=== PATIENT | male | born 1960 | race Caucasian/White ===

== ENCOUNTER 2018-04-30 01:22 | Observation (INO) ==
[2018-04-30] MEDS ORDERED: Aspirin 81 MG TAB.CHEW PO ONE (01:36)
--- NOTE | 2018-04-30 01:55 | Emergency Department Note ---
Disposition Clinical Impression: Syncopal episodes Qualifiers: Syncope type: unspecified Qualified Code(s): R55 - Syncope and collapse Disposition: Admitted As Inpatient Condition: Good General Adult HPI - General Chief complaint: ED General Medical Stated complaint: Neck pain Time Seen by Provider: 04/30/18 01:36 Source: patient, family, EMS Mode of arrival: private vehicle Limitations: no limitations Nursing Notes Reviewed: Yes Vital Signs Reviewed: Yes - History of Present Illness HPI Narrative: 57-year-old male with a history of alcoholism, insulin-dependent diabetes, hypertension presents emergency department for evaluation of left neck and jaw pain, patient states "I had a heart attack 8 years ago and this is exactly what it felt like". Patient states he was sitting in the recliner and all of a sudden he got a sharp horrible pain to his left neck just under his left ear that radiated down his shoulder and his left upper arm about mid bicep. Patient states pain come on suddenly, it has not gotten better, has not gotten worse. Patient does state that he has had a cough for the last 2 weeks, it is nonproductive. He does state that he had congestion for the last 2 weeks. Patient states he also had a recent fall, a CT of the front of his head on an air conditioner and he has pain to his forehead area. Patient denies fever, chills, shortness of breath, dyspnea, abdominal pain, nausea, vomiting, diarrhea, genitourinary changes. White count bedside, states patient had approximately 12 beers tonight, that this is his normal daily alcohol intake. She states that she was having periods where he would be very confused these would last for a few minutes and the new come back around, during these times he would have garbled speech, be unable to follow commands, almost pass out. Pain Scale: 6 - Related Data Home Medications Medication Instructions Recorded Confirmed Insulin LISPRO [Humalog Kwikpen 0 unit SQ [facility] 05/01/16 03/22/18 U-100] Simvastatin [Zocor] 20 mg PO HS 05/01/16 04/30/18 Losartan [Cozaar] 50 mg PO BID 04/30/18 04/30/18 SUMAtriptan succinate [Imitrex] 6 mg SQ ONCE PRN 04/30/18 04/30/18 Previous Rx's Medication Instructions Recorded Ibuprofen [Motrin] 600 mg PO Q6HR PRN #20 tab 07/27/16 Gabapentin [Neurontin] 600 mg PO QID #12 tablet 03/10/17 Allergies Allergy/AdvReac Type Severity Reaction Status Date / Time shellfish derived Allergy Rash Verified 04/16/18 13:57 All systems ED: reviewed and negative except as stated. Review of Systems: As Per HPI Past Medical History - Past Medical History Attestation: Yes The following information was validated with the patient. Source: patient Medical history: Reports: diabetes, hypertension, migraine, myocardial infarction, other Surgical history: Reports: no surgical history, other ([facility]) Psychiatric history: Reports: depression - Social History Smoking Status: Never smoker Smokeless Tobacco Status: No Alcohol use: Reports: heavy, recent Drug use: Reports: none Physical Exam - General Limitations: no limitations General appearance: alert, in no apparent distress - Head Head exam: atraumatic, normocephalic, normal inspection, other (small abrasion to frontal area without signs of infection) - Eye Eye exam: Present: normal appearance, PERRL, EOMI - ENT ENT exam: normal exam, normal oropharynx, mucous membranes moist, TM's normal bilaterally - Neck Neck exam: Present: normal inspection, full ROM, trachea midline, tenderness ( with palpation left side, local) - Chest Chest inspection: Present: normal inspection, symmetric chest wall rise - Respiratory Respiratory exam: Present: normal lung sounds bilaterally, other (episodes of dry cough) - Cardiovascular Cardiovascular exam: Present: regular rate, normal rhythm, normal heart sounds - Abdominal Exam Abdominal exam: Present: soft, Non-Tender, normal bowel sounds. Absent: tenderness, distention, guarding, rebound, rigidity - Extremities Exam Extremities exam: Present: normal inspection, full ROM. Absent: tenderness, pedal edema - Back Exam Back exam: Present: normal inspection, full ROM. Absent: tenderness - Neurological Exam Neurological exam: Present: alert, oriented X3 - Expanded Neurological Exam Patient oriented to: Present: person, place, time Speech: Present: fluid speech Cranial nerves: EOM function (II, III, IV, ): Normal, facial sensation (V): Normal, facial palsy (VII): Normal, gag reflex (IX): Normal, spinal accessory function (XI): Normal, tongue deviation (XII): Normal Cerebellar function: finger to nose: Normal, heel to callahan: Normal Motor strength - LUE: 5/5 Motor strength - RUE: 5/5 Motor strength - LLE: 5/5 Motor strength - RLE: 5/5 Upper motor neuron exam: surinder neglect: Absent bilaterally, pronator drift: Absent bilaterally Sensory exam upper extremity: temperature: Normal, 2 point discrimination: Normal Sensory exam lower extremity: temperature: Normal, 2 point discrimination: Normal Coma Scale Eye Opening: Spontaneous Coma Scale Motor Response: Obeys Commands Coma Scale Verbal Response: Oriented Coma Scale Total: 15 - Psychiatric Psychiatric exam: Present: normal affect, normal mood - Skin Skin exam: Present: warm, dry, intact, normal color Course Course Narrative: 57-year-old male in moderate amount of distress, he appears very anxious. Patient neurologically intact, GCS 15, vital signs stable. Physical exam reveals localized tenderness to the left neck, palpation of the neck muscles refill radiation of pain down the left arm. Patient is morbidly obese. Slight 1+ pitting edema bilateral lower extremities, patient and state this is chronic. EKG reveals sinus rhythm with a ventricular rate of 80 beats minute, NH interval 750 ms, QTC [address] depression or elevation, compared to old EKG no changes. Blood pressure 170s systolic, SPO2 mildly hypoxic at 90%, afebrile, non-tachycardic. We will complete cardiac labs, chest x-ray, apply oxygen and reevaluate. - Reevaluation(s) Reevaluation #1: Shortly after arrival patient blood pressure dropping to 85, 82 systolically, immediately started bolus. Patient states his blood pressure meds were recently adjusted and increased, a new one was also added that he takes at night. During conversation patient states that he has double vision as a result of a recent eye surgery to his left eye. During conversation patient is joking, laughing. He remains neurologically intact. Immediately after I left the room, I was called back into the room by the nurse who had not left and stated patient had a change in mental status, went into the room and noticed patient to be basically unresponsive, heart rate remained in the 80s, no change in blood pressure, breathing on his own though he was not responding. After about 90 seconds, patient started moving on his own and when he was speaking speech was very garbled, after about another minute of this patient returned to baseline with no recollection of what had happened. We added a head CT for evaluation. Dr. Saenz's head while on face time with patient is agreeable to plan of care at this time. Time: 03:48 Reevaluation #2: Patient resting quietly, no acute distress. Patient has remained vitally stable , resting quietly. Chest x-ray returns without acute process, CT of the head and C-spine returned negative. EtOH 143, glucose 343, lactic acid 2.7. Otherwise CBC is benign, BMP is negative, hepatic panel negative, troponin negative, UA negative, VBG negative. Review of records shows normal SPO2 90-92 % on room air, on room air patient was 90%, this is his baseline. Patient with a witnessed syncopal event, plan at this time is admission to the hospital for syncope workup. Discussed with patient and family who are agreeable to plan of care. Time: 04:45 Reevaluation #3: Spoke with hospitalist agreeable for admission to hospital for syncopal episode and further workup. Patient remains agreeable to plan. Time: 05:27 Vital Signs Temperature 98.1 F 04/30/18 01:27 Pulse Rate 79 04/30/18 01:27 Respiratory Rate 19 04/30/18 01:27 Blood Pressure 107/79 04/30/18 01:27 O2 Sat by Pulse Oximetry 92 04/30/18 01:27 Temperature 98.2 F 05/01/18 03:15 Pulse Rate 81 05/01/18 03:15 Respiratory Rate 18 05/01/18 03:15 Blood Pressure 162/95 05/01/18 03:15 O2 Sat by Pulse Oximetry 97 05/01/18 03:15 Oxygen Delivery Oxygen Delivery Room Air Medical Decision Making - Medical Records Medical records reviewed: Yes I reviewed the patient's medical records. - Lab Data Lab results reviewed: Yes I reviewed the patient's lab results. Result diagrams: 04/30/18 03:16 04/30/18 02:24 Lab Results 04/30/18 04/30/18 04/30/18 Range/Units 01:48 02:14 02:24 WBC (4.3-11.1) K/mcL RBC (4.19-5.50) M/mcL Hgb (12.9-16.9) g/dL Hct (37.5-50.1) % MCV (83.0-100.0) fL MCH (28.0-33.3) pg MCHC (31.6-35.5) g/dL RDW (11.5-14.5) % Plt Count (140-400) K/mcL MPV (9.4-12.4) fL Immature Gran % (0-4) % Seg Neutrophils % % Lymphocytes % % Monocytes % % Eosinophils % % Basophils % % Neutrophils # (1.6-8.9) K/mcL Lymphocytes # (0.6-4.6) K/mcL Monocytes # (0.0-1.3) K/mcL Eosinophils # (0.0-0.6) K/mcL Basophils # (0.0-0.2) K/mcL PT 11.6 (9.4-12.1) Seconds INR 1.0 APTT 27.1 (26.0-36.0) Seconds VBG pH (7.32-7.42) pH Units VBG pCO2 (41-51) mmHg VBG pO2 (25-50) mmHg VBG HCO3 (21-27) mEq/L Sodium (136-145) mEq/L Potassium (3.5-5.1) mEq/L Chloride (98-107) mEq/L Carbon Dioxide (23-29) mEq/L BUN (6-20) mg/dL Creatinine (0.70-1.30) mg/dL Est GFR ( Amer) (> 60) Est GFR (Non-Af Amer) (> 60) BUN/Creatinine Ratio (6-26) Glucose (70-105) mg/dL POC Glucose 308 H (70-99) mg/dL Calculated Osmolality (280-300) Lactic Acid (0.5-2.2) mmol/L Calcium (8.6-10.3) mg/dL Total Bilirubin (0.3-1.0) mg/dL Direct Bilirubin (0.0-0.2) mg/dL Indirect Bilirubin (0.0-1.2) mg/dL AST (13-39) Units/L ALT (7-52) Units/L Alkaline Phosphatase (34-104) Units/L Troponin I (< 0.04) ng/mL Serum Total Protein (6.4-8.9) g/dL Albumin (3.5-5.7) g/dL Globulin (2.4-3.5) g/dL Albumin/Globulin Ratio (1.1-2.2) Lipase (11-82) Units/L Urine Color Yellow (Yellow) Urine Clarity Clear (Clear) Urine pH 6.5 (5.0-8.0) pH Units Ur Specific [place] 1.009 L (1.010-1.025) Urine Protein Negative (Neg-Trace) mg/dL Urine Glucose (UA) 500 H (Normal) mg/dL Urine Ketones Negative (Negative) mg/dL Urine Blood Negative (Negative) Urine Nitrite Negative (Negative) Urine Bilirubin Negative (Negative) Urine Urobilinogen Normal (Normal) mg/dL Ur Leukocyte Esterase Negative (Negative) Ur Culture Indicated? NO (NO) Ethyl Alcohol (Less than 10) mg/dL 04/30/18 04/30/18 04/30/18 Range/Units 02:24 02:24 02:35 WBC (4.3-11.1) K/mcL RBC (4.19-5.50) M/mcL Hgb (12.9-16.9) g/dL Hct (37.5-50.1) % MCV (83.0-100.0) fL MCH (28.0-33.3) pg MCHC (31.6-35.5) g/dL RDW (11.5-14.5) % Plt Count (140-400) K/mcL MPV (9.4-12.4) fL Immature Gran % (0-4) % Seg Neutrophils % % Lymphocytes % % Monocytes % % Eosinophils % % Basophils % % Neutrophils # (1.6-8.9) K/mcL Lymphocytes # (0.6-4.6) K/mcL Monocytes # (0.0-1.3) K/mcL Eosinophils # (0.0-0.6) K/mcL Basophils # (0.0-0.2) K/mcL PT (9.4-12.1) Seconds INR APTT (26.0-36.0) Seconds VBG pH 7.33 (7.32-7.42) pH Units VBG pCO2 47 (41-51) mmHg VBG pO2 82 H (25-50) mmHg VBG HCO3 25 (21-27) mEq/L Sodium 135 L (136-145) mEq/L Potassium 3.5 (3.5-5.1) mEq/L Chloride 100 (98-107) mEq/L Carbon Dioxide 23 (23-29) mEq/L BUN 13 (6-20) mg/dL Creatinine 0.79 (0.70-1.30) mg/dL Est GFR ( Amer) > 60 (> 60) Est GFR (Non-Af Amer) > 60 (> 60) BUN/Creatinine Ratio 16 (6-26) Glucose 343 H (70-105) mg/dL POC Glucose (70-99) mg/dL Calculated Osmolality 294 (280-300) Lactic Acid 2.7 H (0.5-2.2) mmol/L Calcium 8.7 (8.6-10.3) mg/dL Total Bilirubin 0.5 (0.3-1.0) mg/dL Direct Bilirubin 0.1 (0.0-0.2) mg/dL Indirect Bilirubin 0.4 (0.0-1.2) mg/dL AST 23 (13-39) Units/L ALT 12 (7-52) Units/L Alkaline Phosphatase 63 (34-104) Units/L Troponin I < 0.03 (< 0.04) ng/mL Serum Total Protein 5.8 L (6.4-8.9) g/dL Albumin 3.5 (3.5-5.7) g/dL Globulin 2.3 L (2.4-3.5) g/dL Albumin/Globulin Ratio 1.5 (1.1-2.2) Lipase 33 (11-82) Units/L Urine Color (Yellow) Urine Clarity (Clear) Urine pH (5.0-8.0) pH Units Ur Specific [place] (1.010-1.025) Urine Protein (Neg-Trace) mg/dL Urine Glucose (UA) (Normal) mg/dL Urine Ketones (Negative) mg/dL Urine Blood (Negative) Urine Nitrite (Negative) Urine Bilirubin (Negative) Urine Urobilinogen (Normal) mg/dL Ur Leukocyte Esterase (Negative) Ur Culture Indicated? (NO) Ethyl Alcohol 143 H (Less than 10) mg/dL 04/30/18 Range/Units 03:16 WBC 7.9 (4.3-11.1) K/mcL RBC 4.34 (4.19-5.50) M/mcL Hgb 13.7 (12.9-16.9) g/dL Hct 40.2 (37.5-50.1) % MCV 92.6 (83.0-100.0) fL MCH 31.6 (28.0-33.3) pg MCHC 34.1 (31.6-35.5) g/dL RDW 12.3 (11.5-14.5) % Plt Count 173 (140-400) K/mcL MPV 11.9 (9.4-12.4) fL Immature Gran % 0.5 (0-4) % Seg Neutrophils % 57.8 % Lymphocytes % 27.5 % Monocytes % 9.3 % Eosinophils % 4.4 % Basophils % 0.5 % Neutrophils # 4.6 (1.6-8.9) K/mcL Lymphocytes # 2.2 (0.6-4.6) K/mcL Monocytes # 0.7 (0.0-1.3) K/mcL Eosinophils # 0.4 (0.0-0.6) K/mcL Basophils # 0.0 (0.0-0.2) K/mcL PT (9.4-12.1) Seconds INR APTT (26.0-36.0) Seconds VBG pH (7.32-7.42) pH Units VBG pCO2 (41-51) mmHg VBG pO2 (25-50) mmHg VBG HCO3 (21-27) mEq/L Sodium (136-145) mEq/L Potassium (3.5-5.1) mEq/L Chloride (98-107) mEq/L Carbon Dioxide (23-29) mEq/L BUN (6-20) mg/dL Creatinine (0.70-1.30) mg/dL Est GFR ( Amer) (> 60) Est GFR (Non-Af Amer) (> 60) BUN/Creatinine Ratio (6-26) Glucose (70-105) mg/dL POC Glucose (70-99) mg/dL Calculated Osmolality (280-300) Lactic Acid (0.5-2.2) mmol/L Calcium (8.6-10.3) mg/dL Total Bilirubin (0.3-1.0) mg/dL Direct Bilirubin (0.0-0.2) mg/dL Indirect Bilirubin (0.0-1.2) mg/dL AST (13-39) Units/L ALT (7-52) Units/L Alkaline Phosphatase (34-104) Units/L Troponin I (< 0.04) ng/mL Serum Total Protein (6.4-8.9) g/dL Albumin (3.5-5.7) g/dL Globulin (2.4-3.5) g/dL Albumin/Globulin Ratio (1.1-2.2) Lipase (11-82) Units/L Urine Color (Yellow) Urine Clarity (Clear) Urine pH (5.0-8.0) pH Units Ur Specific [place] (1.010-1.025) Urine Protein (Neg-Trace) mg/dL Urine Glucose (UA) (Normal) mg/dL Urine Ketones (Negative) mg/dL Urine Blood (Negative) Urine Nitrite (Negative) Urine Bilirubin (Negative) Urine Urobilinogen (Normal) mg/dL Ur Leukocyte Esterase (Negative) Ur Culture Indicated? (NO) Ethyl Alcohol (Less than 10) mg/dL - Radiology Data Radiology results reviewed: Yes I reviewed the patient's radiology results. Chest X-Ray 04/30/18 01:36 IMPRESSION: No acute disease. D/ / Rubén Kay MD / Rubén Kay MD Interpreting Provider: Rubén Kay MD Cervical Spine CT 04/30/18 02:12 IMPRESSION: No definite fracture. D/ / Rubén Kay MD / Rubén Kay MD Interpreting Provider: Rubén Kay MD Head CT 04/30/18 02:12 IMPRESSION: No acute intracranial abnormality. D/ / Emani Sparrow MD / Emani Sparrow MD Interpreting Provider: Emani Sparrow MD Shoulder X-Ray 04/30/18 08:01 IMPRESSION: 1. No radiographic evidence of acute osseous abnormality involving the left shoulder. 2. Mild degenerative changes. D/ / Michele Archer MD / Michele Archer MD Interpreting Provider: Michele Archer MD - EKG Data EKG #1 EKG attestation: Yes I reviewed and interpreted this EKG.
[2018-04-30] MEDS ORDERED: 0.9 % Sodium Chloride 1,000 ML ONE (01:56)
[2018-04-30] MEDS ORDERED: 0.9 % Sodium Chloride 1,000 ML IVC ONE ×2 (02:03→03:21)
[2018-04-30 02:24] LABS: Bilirubin,Urine Negative (Negative); Blood,Urine Negative (Negative); Clarity,Urine Clear (Clear); Color,Urine Yellow (Yellow); Glucose,Urine (UA) 500 mg/dL (Normal); Ketones,Urine Negative (Negative); Leukocyte Esterase,Urine Negative (Negative); Nitrite,Urine Negative (Negative); PH,Urine 6.5 pH Units (5.0-8.0); Protein,Urine Negative (Neg-Trace); Specific Gravity,Urine 1.009 (1.010-1.025); Urobilinogen,Urine Normal (Normal)
[2018-04-30 02:38] LABS: VBG HCO3 25 mEq/L (21-27); VBG PCO2 47 mmHg (41-51); VBG PH 7.33 pH Units (7.32-7.42); VBG PO2 82 mmHg (25-50)
[2018-04-30 02:51] LABS: Prothrombin Time 11.6 Seconds (9.4-12.1)
[2018-04-30 02:53] LABS: Activated Partial Thrombo Time 27.1 Seconds (26.0-36.0)
[2018-04-30 03:05] LABS: Alanine Aminotransferase 12 Units/L (7-52); Albumin 3.5 g/dL (3.5-5.7); Albumin/Globulin Ratio 1.5 (1.1-2.2); Alkaline Phosphatase 63 Units/L (34-104); Aspartate Amino Transferase 23 Units/L (13-39); BUN/Creatinine Ratio 16 (6-26); Bilirubin,Direct 0.1 mg/dL (0.0-0.2); Bilirubin,Indirect 0.4 mg/dL (0.0-1.2); Bilirubin,Total 0.5 mg/dL (0.3-1.0); Blood Urea Nitrogen 13 mg/dL (6-20); Calcium 8.7 mg/dL (8.6-10.3); Carbon Dioxide 23 mEq/L (23-29); Chloride 100 mEq/L (98-107); Ethanol 143 mg/dL (Less than 10); Globulin 2.3 g/dL (2.4-3.5); Glucose 343 mg/dL (70-105); Lipase 33 Units/L (11-82); Osmolality,Calculated 294 (280-300); Potassium 3.5 mEq/L (3.5-5.1); Sodium 135 mEq/L (136-145); Total Protein 5.8 g/dL (6.4-8.9); Troponin I < 0.03 ng/mL (< 0.04); eGFR For Non-African Americans > 60 (> 60)
[2018-04-30 03:26] LABS: Basophils % 0.5 %; Eosinophils # 0.4 K/mcL (0.0-0.6); Eosinophils % 4.4 %; Hematocrit 40.2 % (37.5-50.1); Hemoglobin 13.7 g/dL (12.9-16.9); Immature Granulocytes % 0.5 % (0-4); Lymphocytes # 2.2 K/mcL (0.6-4.6); Lymphocytes % 27.5 %; Mean Corpuscular HGB Conc 34.1 g/dL (31.6-35.5); Mean Corpuscular Hemoglobin 31.6 pg (28.0-33.3); Mean Corpuscular Volume 92.6 fL (83.0-100.0); Mean Platelet Volume 11.9 fL (9.4-12.4); Monocytes # 0.7 K/mcL (0.0-1.3); Monocytes % 9.3 %; Neutrophils # 4.6 K/mcL (1.6-8.9); Platelet Count 173 K/mcL (140-400); Red Blood Count 4.34 M/mcL (4.19-5.50); Red Cell Distribution Width 12.3 % (11.5-14.5); Segmented Neutrophils % 57.8 %
--- NOTE | 2018-04-30 07:40 | Emergency Department Note ---
Disposition Clinical Impression: Syncopal episodes Qualifiers: Syncope type: unspecified Qualified Code(s): R55 - Syncope and collapse Disposition: Admitted As Inpatient Condition: Good General Adult HPI - General Chief complaint: ED General Medical Stated complaint: Neck pain Time Seen by Provider: 04/30/18 01:36 Source: patient, family, EMS Mode of arrival: private vehicle Limitations: no limitations Nursing Notes Reviewed: Yes Vital Signs Reviewed: Yes - History of Present Illness Pain Scale: 0 - Related Data Home Medications Medication Instructions Recorded Confirmed SitaGLIPtin [Januvia] 100 mg PO DAILY 12/31/15 03/22/18 Insulin LISPRO [Humalog Kwikpen 0 unit SQ [facility] 05/01/16 03/22/18 U-100] Lisinopril [Zestril] 10 mg PO DAILY 05/01/16 03/22/18 Simvastatin [Zocor] 20 mg PO HS 05/01/16 03/22/18 Previous Rx's Medication Instructions Recorded SUMAtriptan succinate [Imitrex] 6 mg SQ ONCE #1 mls 03/10/16 Ibuprofen [Motrin] 600 mg PO Q6HR PRN #20 tab 07/27/16 Gabapentin [Neurontin] 600 mg PO QID #12 tablet 03/10/17 Allergies Allergy/AdvReac Type Severity Reaction Status Date / Time shellfish derived Allergy Rash Verified 04/16/18 13:57 Past Medical History - Past Medical History Medical history: Reports: diabetes, hypertension, migraine, myocardial infarction, other Surgical history: Reports: no surgical history, other Psychiatric history: Reports: depression - Social History Smoking Status: Never smoker Smokeless Tobacco Status: No Alcohol use: Reports: heavy, recent Drug use: Reports: none Physical Exam - General Limitations: no limitations General appearance: alert, in no apparent distress Course Vital Signs Temperature 98.1 F 04/30/18 01:27 Pulse Rate 79 04/30/18 01:27 Respiratory Rate 19 04/30/18 01:27 Blood Pressure 107/79 04/30/18 01:27 O2 Sat by Pulse Oximetry 92 04/30/18 01:27 Temperature 97.8 F 04/30/18 06:28 Pulse Rate 79 04/30/18 06:28 Respiratory Rate 18 04/30/18 06:28 Blood Pressure 138/89 04/30/18 06:28 O2 Sat by Pulse Oximetry 94 04/30/18 06:28 Oxygen Delivery Oxygen Delivery Room Air Medical Decision Making - Medical Records Medical records reviewed: Yes I reviewed the patient's medical records. - Lab Data Lab results reviewed: Yes I reviewed the patient's lab results. Result diagrams: 04/30/18 03:16 04/30/18 02:24 Lab Results 04/30/18 04/30/18 04/30/18 Range/Units 01:48 02:24 02:24 WBC (4.3-11.1) K/mcL RBC (4.19-5.50) M/mcL Hgb (12.9-16.9) g/dL Hct (37.5-50.1) % MCV (83.0-100.0) fL MCH (28.0-33.3) pg MCHC (31.6-35.5) g/dL RDW (11.5-14.5) % Plt Count (140-400) K/mcL MPV (9.4-12.4) fL Immature Gran % (0-4) % Seg Neutrophils % % Lymphocytes % % Monocytes % % Eosinophils % % Basophils % % Neutrophils # (1.6-8.9) K/mcL Lymphocytes # (0.6-4.6) K/mcL Monocytes # (0.0-1.3) K/mcL Eosinophils # (0.0-0.6) K/mcL Basophils # (0.0-0.2) K/mcL PT 11.6 (9.4-12.1) Seconds INR 1.0 APTT 27.1 (26.0-36.0) Seconds VBG pH (7.32-7.42) pH Units VBG pCO2 (41-51) mmHg VBG pO2 (25-50) mmHg VBG HCO3 (21-27) mEq/L Sodium 135 L (136-145) mEq/L Potassium 3.5 (3.5-5.1) mEq/L Chloride 100 (98-107) mEq/L Carbon Dioxide 23 (23-29) mEq/L BUN 13 (6-20) mg/dL Creatinine 0.79 (0.70-1.30) mg/dL Est GFR ( Amer) > 60 (> 60) Est GFR (Non-Af Amer) > 60 (> 60) BUN/Creatinine Ratio 16 (6-26) Glucose 343 H (70-105) mg/dL Calculated Osmolality 294 (280-300) Lactic Acid (0.5-2.2) mmol/L Calcium 8.7 (8.6-10.3) mg/dL Total Bilirubin 0.5 (0.3-1.0) mg/dL Direct Bilirubin 0.1 (0.0-0.2) mg/dL Indirect Bilirubin 0.4 (0.0-1.2) mg/dL AST 23 (13-39) Units/L ALT 12 (7-52) Units/L Alkaline Phosphatase 63 (34-104) Units/L Troponin I < 0.03 (< 0.04) ng/mL Serum Total Protein 5.8 L (6.4-8.9) g/dL Albumin 3.5 (3.5-5.7) g/dL Globulin 2.3 L (2.4-3.5) g/dL Albumin/Globulin Ratio 1.5 (1.1-2.2) Lipase 33 (11-82) Units/L Urine Color Yellow (Yellow) Urine Clarity Clear (Clear) Urine pH 6.5 (5.0-8.0) pH Units Ur Specific [place] 1.009 L (1.010-1.025) Urine Protein Negative (Neg-Trace) mg/dL Urine Glucose (UA) 500 H (Normal) mg/dL Urine Ketones Negative (Negative) mg/dL Urine Blood Negative (Negative) Urine Nitrite Negative (Negative) Urine Bilirubin Negative (Negative) Urine Urobilinogen Normal (Normal) mg/dL Ur Leukocyte Esterase Negative (Negative) Ur Culture Indicated? NO (NO) Ethyl Alcohol 143 H (Less than 10) mg/dL 04/30/18 04/30/18 04/30/18 Range/Units 02:24 02:35 03:16 WBC 7.9 (4.3-11.1) K/mcL RBC 4.34 (4.19-5.50) M/mcL Hgb 13.7 (12.9-16.9) g/dL Hct 40.2 (37.5-50.1) % MCV 92.6 (83.0-100.0) fL MCH 31.6 (28.0-33.3) pg MCHC 34.1 (31.6-35.5) g/dL RDW 12.3 (11.5-14.5) % Plt Count 173 (140-400) K/mcL MPV 11.9 (9.4-12.4) fL Immature Gran % 0.5 (0-4) % Seg Neutrophils % 57.8 % Lymphocytes % 27.5 % Monocytes % 9.3 % Eosinophils % 4.4 % Basophils % 0.5 % Neutrophils # 4.6 (1.6-8.9) K/mcL Lymphocytes # 2.2 (0.6-4.6) K/mcL Monocytes # 0.7 (0.0-1.3) K/mcL Eosinophils # 0.4 (0.0-0.6) K/mcL Basophils # 0.0 (0.0-0.2) K/mcL PT (9.4-12.1) Seconds INR APTT (26.0-36.0) Seconds VBG pH 7.33 (7.32-7.42) pH Units VBG pCO2 47 (41-51) mmHg VBG pO2 82 H (25-50) mmHg VBG HCO3 25 (21-27) mEq/L Sodium (136-145) mEq/L Potassium (3.5-5.1) mEq/L Chloride (98-107) mEq/L Carbon Dioxide (23-29) mEq/L BUN (6-20) mg/dL Creatinine (0.70-1.30) mg/dL Est GFR ( Amer) (> 60) Est GFR (Non-Af Amer) (> 60) BUN/Creatinine Ratio (6-26) Glucose (70-105) mg/dL Calculated Osmolality (280-300) Lactic Acid 2.7 H (0.5-2.2) mmol/L Calcium (8.6-10.3) mg/dL Total Bilirubin (0.3-1.0) mg/dL Direct Bilirubin (0.0-0.2) mg/dL Indirect Bilirubin (0.0-1.2) mg/dL AST (13-39) Units/L ALT (7-52) Units/L Alkaline Phosphatase (34-104) Units/L Troponin I (< 0.04) ng/mL Serum Total Protein (6.4-8.9) g/dL Albumin (3.5-5.7) g/dL Globulin (2.4-3.5) g/dL Albumin/Globulin Ratio (1.1-2.2) Lipase (11-82) Units/L Urine Color (Yellow) Urine Clarity (Clear) Urine pH (5.0-8.0) pH Units Ur Specific York (1.010-1.025) Urine Protein (Neg-Trace) mg/dL Urine Glucose (UA) (Normal) mg/dL Urine Ketones (Negative) mg/dL Urine Blood (Negative) Urine Nitrite (Negative) Urine Bilirubin (Negative) Urine Urobilinogen (Normal) mg/dL Ur Leukocyte Esterase (Negative) Ur Culture Indicated? (NO) Ethyl Alcohol (Less than 10) mg/dL - Radiology Data Radiology results reviewed: Yes I reviewed the patient's radiology results. Chest X-Ray 04/30/18 01:36 IMPRESSION: No acute disease. D/ / Rubén Kay MD / Rubén Kay MD Interpreting Provider: Rubén Kay MD Cervical Spine CT 04/30/18 02:12 IMPRESSION: No definite fracture. D/ / Rubén Kay MD / Rubén Kay MD Interpreting Provider: Rubén Kay MD Head CT 04/30/18 02:12 IMPRESSION: No acute intracranial abnormality. D/ / Emani Sparrow MD / Emani Sparrow MD Interpreting Provider: Emani Sparrow MD - EKG Data EKG #1 EKG attestation: Yes I reviewed and interpreted this EKG. EKG results narrative: EKG shows a normal sinus rhythm with ventricular rate of 80. No acute ST segment elevation or depression. No arrhythmia or ectopy. Critical Care Time Critical Care Time: Yes Total Critical Care Time: 35 Attestation: Critical care performed: Time is exclusive of separately billable procedures. Time includes: direct patient care, patient reassessment, coordination of patient care, interpretation of data (laboratory data, radiology data, and respiratory data), review of patient's medical records, medical consultation and documentation of patient care. Procedures included in critical care time: Procedures excluded from critical care time: Attestation Statement - Attestation Attestation: I, Juancarlos Saenz MD, personally evaluated this patient and discussed their management with the midlevel provicer, PAC/ARCHIVIST. I reviewed the midlevel provider 's note and agree with the documented findings, medical decision making, and plan of care. 57-year-old male presents to the emergency department with a complaint of pain in his left arm and the left lateral neck. He states the pain is said bad ax causing him to black out. He denies chest pain. No shortness of breath. Patient states he does have a history of an [facility] in the past with similar symptoms. While here in the emergency department the patient did become hypotensive and had a syncopal episode while sitting upright in the bed. He became pale and diaphoretic and unresponsive. 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 This lasted about 30-60 seconds and then patient began to awaken. When he first awoke his speech was garbled and difficult to understand. No facial droop noted. This rapidly cleared and he returned to baseline. He had another similar episode while in the emergency department. On examination patient is a well-developed obese male in no acute distress. He is alert and oriented 3. There is no cyanosis or diaphoresis. Chest is nontender to palpation. There is some tenderness palpation over the left lateral neck muscles just below the angle of the mandible. Breath sounds are decreased but equal bilaterally. There are a few faint scattered expiratory wheezes. Heart regular rate and rhythm. Abdomen soft and nontender with normal bowel sounds. One plus pedal edema bilaterally. No gross focal neurological deficits. Labs, EKG, and imaging reviewed. The hospitalist, Dr. Rider, was consulted and accepted admission of the patient.
--- NOTE | 2018-04-30 07:45 | Internal Med History&Physical ---
Date of Encounter: 04/30/18 Time of Encounter: 07:38 Internal Medicine - H&P: HPI History of present illness: Mr. Ferro is a 57 year old male with history of ND, poorly controlled DM, hypertension, HPL, ETOH abuse presented for acute onset of neck and shoulder pain. Most concerning for patient because he states symptoms were similar to time when he had ND 8 years ago. No family present at bedside, patient is historian. Patient does not recall exactly when the incident occurred but does note that pain was in left neck/jaw, and left shoulder. Patient was also reported by his , who is not in the room at this time, that he passed out recently and hit his head on air conditioner. Patient doesn't remember this. He denies any recent trauma that he is able to remember, fevers/chills, n/v, diaphoresis, numbness/tingling. He did have shortness of breath with the onset of pain. He had Nuc stress test in 2016 that was negative for ischemia, and an echocardiogram that was unremarkable with EF 50-55% and mild diastolic dysfunction. In the ED patient was intoxicated with alcohol, level was 143. He had a witnessed syncopal episode by staff there and he also had hypotensive episode with SBP in 80s, he required 2 L normal saline and BP now normal. A CT head was negative, initial troponin was negative, chest x-ray showed no acute process. EKG was unchanged since prior study. Past Med Surg Social Fam HX - Past Medical History Medical history: diabetes, hypertension, migraine, myocardial infarction, other Additional medical history: alcoholic Psychiatric history: depression - Past Surgical History Surgical History: no surgical history, other Additional surgical history: eye surgery - Social History Smoking Status: Never smoker Smokeless Tobacco Status: No Alcohol use: heavy, recent Drug use: none - Family History Mother Name: Ebony Ferro Age: 75 Hx Family Cancer: Yes (breast cancer) Hx Family Neurologic Disorders: Yes (CVA) Father Name: Misbah Ferro Living Status: Age at : 75 Cause of : MRSA Hx Family Cardiac Disorders: Yes (CAD) Hx Family Endocrine Disorder: Yes (DM) Internal Medicine - H&P: Meds SitaGLIPtin [Januvia] 100 mg PO DAILY 12/31/15 [History] SUMAtriptan succinate [Imitrex] 6 mg SQ ONCE #1 mls 03/10/16 [Rx] Insulin LISPRO [Humalog Kwikpen U-100] 0 unit SQ [facility] 05/01/16 [History] Lisinopril [Zestril] 10 mg PO DAILY 05/01/16 [History] Simvastatin [Zocor] 20 mg PO HS 05/01/16 [History] Ibuprofen [Motrin] 600 mg PO Q6HR PRN #20 tab 07/27/16 [Rx] Gabapentin [Neurontin] 600 mg PO QID #12 tablet 03/10/17 [Rx] 3 Allergy/AdvReac Type Severity Reaction Status Date / Time shellfish derived Allergy Rash Verified 04/16/18 13:57 All Systems PM: A 10-system review of systems was performed and is negative for pertinent findings except as documented above in the HPI. - Constitutional Vitals: Temp Pulse Resp BP Pulse Ox 97.8 F 79 18 138/89 94 04/30/18 06:28 04/30/18 06:28 04/30/18 06:28 04/30/18 06:28 04/30/18 06:28 General appearance: Present: cooperative, A&O X 3, obese, answers questions appropriately Exam: NAD - Head Head exam: Present: atraumatic, normocephalic - Eye Eye exam: Present: PERRL, conjuntiva pink, sclera anicteric Pupils: Present: PERRL - Neck Neck exam general surgery: Present: supple, trachea midline. Absent: lymphadenopathy - Respiratory Respiratory exam: Present: CTAB. Absent: accessory muscle use, rales, rhonchi, wheezes - Cardiovascular Cardiovascular exam: Present: RRR, +S1, +S2. Absent: diastolic murmur, gallop, rubs, systolic murmur - GI/Abdominal GI/Abdominal exam: Present: normal bowel sounds, soft, no peritoneal signs. Absent: distended, tenderness - Extremities Exam Extremities exam: Present: pedal edema (1+ bilaterally), warm, radial pulses palpable and symmetrical. Absent: calf tenderness, cyanotic - Neurological Exam Neurological exam: Present: CN II-XII intact, oriented X3, no focal deficits. Absent: pronater drift, facial droop, speech deficit - Skin Skin exam: Present: dry, intact Internal Med - H&P Results - Labs CBC & Chem 7: 04/30/18 03:16 04/30/18 02:24 - Assessment and plan (1) Chest pain Current Visit: No Status: Acute Assessment and plan: Patient has history of ND with presentation he feels is similar to his ND. Describes pain as radiating to left neck and left jaw. Patient denies that there is pain on palpation during my exam but I did note occasionally he would wince with light palpation. Will rule out ACS based on risk factors. Last stress test in 2016 unremarkable, last echo in 2016 relatively unremarkable outside of mild diastolic dysfunction. His presentation and history does not seem consistent with aortic dissection or pulmonary embolism. Currently hemodynamically stable in no acute distress. - Echocardiogram - Cycle troponin - Nuc stress test. - Nitro would be given with caution as he had a hypotensive episode in ED. - Qualifiers: Chest pain type: unspecified Qualified Code(s): R07.9 - Chest pain, unspecified (2) Hypotensive episode Current Visit: Yes Status: Acute Assessment and plan: SBP in 80s in the ED. Unsure cause, likely related to intoxication, though that can also make hypertensive. Has received 2 L IV fluids. Will give additional 1 L IV fluid gentle as patient does show edema in lower extremities. He does not have any signs of overt heart failure. - Cont IV fluids gentle hydration - Do not resume home lisinopril 10 mg for now and monitor off of this. (3) Syncopal episodes Current Visit: Yes Status: Acute Assessment and plan: Witness in ED. Patient did not recall event. Likely alcohol intoxication. CT head was negative for any acute process. Continue gentle IV fluid hydration. No focal deficits on exam. - U/S carotids, - Echocardiogram - Monitor on telemetry Qualifiers: Syncope type: unspecified Qualified Code(s): R55 - Syncope and collapse (4) Hyperglycemia Current Visit: No Status: Acute (5) Hyperlipidemia Current Visit: No Status: Acute Qualifiers: Hyperlipidemia type: unspecified Qualified Code(s): E78.5 - Hyperlipidemia , unspecified (6) Poorly controlled diabetes mellitus Current Visit: No Status: Chronic Assessment and plan: Currently glucose in 300s on admission A1C ISS Diabetic diet unsure patient baseline, may run 200-300s at home. A1C to better assess this. Goal <180. (7) DVT prophylaxis Current Visit: No Status: Acute Assessment and plan: EPCD - Time Spent With Patient Total time spent is greater than 50% in coordination of care (as documented) at patient's floor/unit and/or counseling patient:
[2018-04-30] MEDS ORDERED: Naloxone 0.4 MG/ML INJ IVP PRN (07:57)
[2018-04-30] MEDS ORDERED: *HR* HYDROcodone/Acet 5/325 mg TABLET PO PRN (07:57)
[2018-04-30] MEDS ORDERED: traMADol 50 MG TABLET PO PRN (07:57)
[2018-04-30] MEDS ORDERED: 0.9 % Sodium Chloride 1,000 ML IVC SCH (08:00)
[2018-04-30] MEDS ORDERED: Nitroglycerin 0.4 MG TAB.SUBL SL PRN (08:03)
[2018-04-30] MEDS ORDERED: Ondansetron 4 MG/2 ML VIAL IVP PRN (08:03)
[2018-04-30] MEDS ORDERED: Insulin Regular, Human 100 UNIT/ML SQ ONE (08:05)
[2018-04-30] MEDS: Insulin DETEMIR 100 UNIT/ML X5UNITS SQ SCH ×2 (10:08→20:43)
[2018-04-30 11:02] LABS: Estimated Average Glucose 280 mg/dl; Hemoglobin A1C 11.4 %
[2018-04-30] MEDS: Insulin LISPRO 300 UNITS/3 ML VIAL SQ SCH ×2 (12:17→17:18)
[2018-04-30 12:37] LABS: Amphetamine Screen,Urine Negative ng/mL (Cutoff=1000); Barbiturate Screen,Urine Negative ng/mL (Cutoff=200); Benzodiazepines Screen,Urine Negative ng/mL (Cutoff=200); Cannabinoid Screen,Urine Negative ng/mL (Cutoff = 50); Cocaine Screen,Urine Negative ng/mL (Cutoff= 300); Opiate Screen,Urine Negative ng/mL (Cutoff=300); Phencyclidine Screen,Urine Negative ng/mL (Cutoff=25)
[2018-04-30] MEDS ORDERED: Insulin LISPRO 300 UNITS/3 ML VIAL SQ SCH (21:00)
[2018-04-30] MEDS ORDERED: Gabapentin 300 MG CAPSULE PO SCH (21:00)
[2018-04-30] MEDS ORDERED: SUMAtriptan 6 MG/0.5 ML SQ PRN (22:08)
[2018-05-01] MEDS: Acetaminophen 325 MG TABLET PO PRN ×2 (02:21→12:01)
[2018-05-01] MEDS ORDERED: Regadenoson 0.4 MG/5 ML SYRINGE IVP ONE (05:39)
[2018-05-01 05:56] LABS: BUN/Creatinine Ratio 21 (6-26); Blood Urea Nitrogen 12 mg/dL (6-20); Calcium 8.9 mg/dL (8.6-10.3); Carbon Dioxide 25 mEq/L (23-29); Chloride 101 mEq/L (98-107); Glucose 216 mg/dL (70-105); Osmolality,Calculated 292 (280-300); Potassium 3.1 mEq/L (3.5-5.1); Sodium 138 mEq/L (136-145); eGFR For Non-African Americans > 60 (> 60)
[2018-05-01] MEDS: Gabapentin 300 MG CAPSULE PO SCH ×3 (11:55→20:23)
--- NOTE | 2018-05-01 12:37 | Internal Med Progress Note ---
Hospitalist Progress Note - Encounter Date of Encounter: 05/01/18 Time of Encounter: 12:28 - Subjective Interval History: Seen and examined at bedside, no acute changes overnight. Denies any chest pain , neck pain, shoulder pain or shortness of breath. - Exam Vitals: Temp Pulse Resp BP Pulse Ox 98.0 F 89 17 169/93 96 05/01/18 06:42 05/01/18 06:42 05/01/18 06:42 05/01/18 06:42 05/01/18 06:42 Exam: PHYSICAL EXAMINATION: GENERAL: The patient is an obese male in no apparent distress. He is alert and oriented x3. HEENT: Head is normocephalic and atraumatic. Extraocular muscles are intact. Pupils are equal, and reactive to light and accommodation NECK: Supple. No carotid bruits. No lymphadenopathy or thyromegaly. LUNGS: Clear/diminished to auscultation AP and L. HEART: Regular rate and rhythm, S1, S2 without murmur. ABDOMEN: Soft, nontender, and nondistended. Positive bowel sounds. No hepatosplenomegaly was noted. EXTREMITIES: Without any cyanosis, clubbing, rash, lesions or edema. PSYCHIATRIC: Pleasant with appropriate affect, does not appear to be anxious or agitated - Assessment and Plan (1) Chest pain Current Visit: No Status: Acute Assessment and Plan: history of MN, presents with left neck shoulder and jaw pain; reports that this is similar to his presentation for prior MN Denies any shortness of breath, palpitations, chest pain, diaphoresis, dizziness Risk factors include hypertension, obesity, diabetes, HLD, prior MN ACS rule out implemented Troponins negative 2; per my review the EKG is without any ST-T wave changes concerning for ischemia TTE 05/01/18 impressions: Normal left ventricular size and low normal systolic function. LVEF 55%. Mild LVH. Mild diastolic dysfunction. Normal right ventricular size and systolic normal systolic function. Mildly enlarged left atrial size. Mild pulmonic regurgitation. No pulmonary hypertension. Estimated RVSP was 29 mmHg. Mild dilatation of sinus of Valsalva at 40mm. Underwent day 1 of 2 day stress this morning; will undergo day 2 in the morning , nothing by mouth after midnight Remains hemodynamically stable, continue to monitor on telemetry Nitroglycerin for chest pain Start aspirin 81 mg daily, first dose now, start low-dose beta rios 12.5 mg by mouth twice a day metoprolol first dose now for HR less than 55 and SBP less than 100 When necessary oxygen supplementation for respiratory support Consider cardio consult based on results of stress test (2) Poorly controlled diabetes mellitus Current Visit: No Status: Chronic Assessment and Plan: Glucose in the 300s on admission Remains elevated this morning at 243 Increase insulin sliding scale coverage to medium Poorly controlled, A1C greater than11 Diabetic diet (3) Hyperglycemia Current Visit: No Status: Acute (4) Hyperlipidemia Current Visit: No Status: Acute Assessment and Plan: Continue Zocor discussed low-fat diet, weight loss and lifestyle modifications (5) Syncopal episodes Current Visit: Yes Status: Acute Assessment and Plan: Witness in ED, etiology unclear. Patient did not recall event. Likely alcohol intoxication was found to have alcohol level of 143. CT head was negative for any acute process denies any prior syncopal-like episodes Continues to have a nonfocal neurological exam - U/S carotids-preliminary; non-stenotic plaque bilaterally - Echocardiogram as above - Monitor on telemetry (6) Hypotensive episode Current Visit: Yes Status: Resolved (7) DVT prophylaxis Current Visit: No Status: Acute Assessment and Plan: Continue EPCD - Time Spent with Patient Total time spent is greater than 50% in coordination of care (as documented) at patient's floor/unit and/or counseling patient: less than 15 minutes Plan of Care Discussed with: patient Internal Medicine: Result - Labs CBC & Chem 7: 04/30/18 03:16 05/01/18 03:52 Labs: BMP 05/01/18 03:52 Sodium 138 Potassium 3.1 L Chloride 101 Carbon Dioxide 25 BUN 12 Creatinine 0.57 L Glucose 216 H Calcium 8.9 - ABG Interpretation ABG results: PT/INR, D-dimer PT 11.6 Seconds (9.4-12.1) 04/30/18 02:24 - Impressions Impressions Echocardiogram 05/01/18 08:03 Impressions: Normal left ventricular size and low normal systolic function. LVEF 55%. Mild LVH. Mild diastolic dysfunction. Normal right ventricular size and systolic normal systolic function. Mildly enlarged left atrial size. Mild pulmonic regurgitation. No pulmonary hypertension. Estimated RVSP was 29 mmHg. Mild dilatation of sinus of Valsalva at 40mm. Left Ventricular Wall Motion: Rest Echo Findings All wall segments showed normal motion. Findings: Study Quality * Technically adequate exam. ECG Findings * Normal sinus rhythm. Left Ventricle * LVEF 55%. * Mild concentric left ventricular hypertrophy. * Mild left ventricular diastolic dysfunction. * Normal LV chamber size, wall thickness and function. Right Ventricle * Normal right ventricular structure and function. * TAPSE 25mm Left Atrium * Mildly dilated left atrium. Right Atrium * Normal right atrial size. Interatrial Septum * Lipomatous interatrial septum. Aortic Valve * Trileaflet aortic valve with normal function. Mitral Valve * Normal mitral valve structure and function. Tricuspid Valve * Trace tricuspid regurgitation. * No pulmonary hypertension. * Estimated RVSP is 29 mmHg. * Estimated RA pressure is 5 mmHg. Pulmonic Valve * Mild pulmonic regurgitation. Aorta * The aortic root is mildly dilated. * Sinus of Valsalva 40mm Pericardium * The pericardium appears normal. IVC * Normal IVC dimensions and inspiratory collapse. - VTE Documentation of Mechanical Device: Intermittent pneumatic compression device Consult Discharge Plan - Plan Referrals: Audi Nicolas MD [Primary Care Provider] - (1) Chest pain Qualifiers: Chest pain type: unspecified Qualified Code(s): R07.9 - Chest pain, unspecified (4) Hyperlipidemia Qualifiers: Hyperlipidemia type: unspecified Qualified Code(s): E78.5 - Hyperlipidemia, unspecified (5) Syncopal episodes Qualifiers: Syncope type: unspecified Qualified Code(s): R55 - Syncope and collapse
[2018-05-01] MEDS: Insulin LISPRO 300 UNITS/3 ML VIAL SQ SCH ×2 (12:51→16:14)
[2018-05-01] MEDS: Aspirin 81 MG TAB.CHEW PO SCH (16:09)
[2018-05-01] MEDS: Insulin DETEMIR 100 UNIT/ML X5UNITS SQ SCH (20:24)
[2018-05-01] MEDS ORDERED: Insulin LISPRO 300 UNITS/3 ML VIAL SQ SCH (21:00)
[2018-05-02] MEDS: Acetaminophen 325 MG TABLET PO PRN (00:15)
[2018-05-02] MEDS: Aspirin 81 MG TAB.CHEW PO SCH (09:08)
[2018-05-02] MEDS: Gabapentin 300 MG CAPSULE PO SCH (09:09)
[2018-05-02] MEDS: Insulin DETEMIR 100 UNIT/ML X5UNITS SQ SCH (09:09)
[2018-05-02] MEDS: Insulin LISPRO 300 UNITS/3 ML VIAL SQ SCH ×2 (09:10→12:07)
[2018-05-02 11:58] VITALS: BP 130/86
--- NOTE | 2018-05-02 14:19 | Discharge Summary ---
- NOTES TO OUTPATIENT PROVIDER Notes to Outpatient Provider: monitor bp, risk factor modification Orders not resulted at time of discharge: Pending orders 04/30/18 08:02 NM sy perf SPECT multi [NM] Routine Date of Encounter: 05/02/18 Time of Encounter: 14:16 - Discharge Diagnosis (1) Chest pain Priority: Primary Status: Acute Assessment and Plan: history of OH, presents with left neck shoulder and jaw pain; reports that this is similar to his presentation for prior OH Denies any shortness of breath, palpitations, chest pain, diaphoresis, dizziness Risk factors include hypertension, obesity, diabetes, HLD, prior OH ACS rule out implemented Troponins negative 2; per my review the EKG is without any ST-T wave changes concerning for ischemia TTE 05/01/18 impressions: Normal left ventricular size and low normal systolic function. LVEF 55%. Mild LVH. Mild diastolic dysfunction. Normal right ventricular size and systolic normal systolic function. Mildly enlarged left atrial size. Mild pulmonic regurgitation. No pulmonary hypertension. Estimated RVSP was 29 mmHg. Mild dilatation of sinus of Valsalva at 40mm. 2-day stress; perfusion study negative for ischemia EF 50% d/c with ASA and BB Qualifiers: Chest pain type: unspecified Qualified Code(s): R07.9 - Chest pain, unspecified (2) Poorly controlled diabetes mellitus Priority: Secondary Status: Chronic (3) Hyperglycemia Priority: Secondary Status: Acute (4) Hyperlipidemia Priority: Secondary Status: Acute Qualifiers: Hyperlipidemia type: unspecified Qualified Code(s): E78.5 - Hyperlipidemia , unspecified (5) Syncopal episodes Priority: Secondary Status: Acute Qualifiers: Syncope type: unspecified Qualified Code(s): R55 - Syncope and collapse (6) DVT prophylaxis Priority: Secondary Status: Acute Hospital course: Mr. Ferro is a 57 year old male with history of OH, poorly controlled DM, hypertension, HPL, ETOH abuse presented for acute onset of neck and shoulder pain. Most concerning for patient because he states symptoms were similar to time when he had OH 8 years ago. He was admitted to r/o ACS. EKG reviewed by me without any ST-and T-wave changes concerning for ischemia, serial troponins negative less than 0.032. Patient underwent today's stress test which was negative for ischemia. He has not had any return of chest pain throughout the stay. He was noted to be hypertensive, metoprolol was added to and HTN medication regimen and blood pressure improved. Additionally, he was started on daily ASA and will d/c with ASA and metoprolol. Discussed lifestyle modifications. Instructed to return to ED should symptoms return. Ruled out OH. consider anxiety as cause of neck/shoulder pains. Reported recent Fentanyl exposure at job at [facility] [employer]. Discharge discussed with: patient, family, nurse - Time Spent with Patient Total time spent providing and/or coordinating discharge services: Less than 30 minutes - Discharge Medications Prescriptions: Metoprolol [Lopressor] 12.5 mg PO BID 30 Days #15 tablet Home Medications: Simvastatin [Zocor] 20 mg PO HS 05/01/16 [History] Gabapentin [Neurontin] 600 mg PO QID #12 tablet 03/10/17 [Rx] Losartan [Cozaar] 50 mg PO BID 04/30/18 [History] SUMAtriptan succinate [Imitrex] 6 mg SQ ONCE PRN 04/30/18 [History] Aspirin 81 mg PO DAILY #0 tab.chew 05/02/18 [Rx] Insulin DETEMIR [Levemir] 20 unit SQ BID [id number] 05/02/18 [Rx] Insulin LISPRO [HumaLOG] 0 units SQ HS vial 05/02/18 [Rx] Insulin LISPRO [HumaLOG] 0 units SQ TIDAC vial 05/02/18 [Rx] Metoprolol [Lopressor] 12.5 mg PO BID 30 Days #15 tablet 05/02/18 [Rx] Allergies/Adverse Reactions: 3 Allergy/AdvReac Type Severity Reaction Status Date / Time shellfish derived Allergy Rash Verified 04/16/18 13:57 Date of admission: 04/30/18 05:34 Primary care physician: Audi Nicolas MD Discharging clinician: Daniel Love Anticipated date of discharge: 05/02/18 - Constitutional Vitals: Temp Pulse Resp BP Pulse Ox 97.7 F 78 20 130/86 93 05/02/18 11:57 05/02/18 11:57 05/02/18 11:57 05/02/18 11:57 05/02/18 11:57 General appearance: Present: cooperative, A&O X 3, obese, answers questions appropriately Exam: . - Head Head exam: Present: atraumatic, normocephalic - Eye Eye exam: Present: PERRL, conjuntiva pink, sclera anicteric Pupils: Present: PERRL - Neck Neck exam general surgery: Present: supple, trachea midline. Absent: lymphadenopathy - Respiratory Respiratory exam: Present: CTAB. Absent: accessory muscle use, rales, rhonchi, wheezes - Cardiovascular Cardiovascular exam: Present: RRR, +S1, +S2. Absent: diastolic murmur, gallop, rubs, systolic murmur - GI/Abdominal GI/Abdominal exam: Present: normal bowel sounds, soft, no peritoneal signs. Absent: distended, tenderness - Extremities Exam Extremities exam: Present: warm, radial pulses palpable and symmetrical. Absent : calf tenderness, cyanotic, pedal edema - Neurological Exam Neurological exam: Present: CN II-XII intact, oriented X3, no focal deficits. Absent: pronater drift, facial droop, speech deficit - Skin Skin exam: Present: dry, intact - Patient Status Disposition: Home, Self-Care Condition: Good Overall status at discharge: patient is back to baseline - Discharge Instructions Instructions: Syncope (DC), Chest Pain (DC) Follow Up With: Audi Nicolas MD [Primary Care Provider] - - Diet and Activity Activity: increase activity as tolerated, resume usual activities as tolerated Diet: advance to your usual diet, diabetic diet, low fat, low cholesterol - VTE Documentation of Mechanical Device: Intermittent pneumatic compression device
--- NOTE | 2018-05-02 22:54 | Electrocardiograph Report ---
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
== END 2018-05-02 15:10 | disposition home or self-care (01) ==
LOC: EMEROOARM 01:22 → 3BNU 01:22
PROVIDERS: ADMIT Internal Medicine; ATTEND Internal Medicine